=== PATIENT | male | born 1980 | race American Indian/Alaskan Native ===

== ENCOUNTER 2019-08-12 21:30 | Emergency (ER) | payer SELFPAY ==
[2019-08-12 21:54] VITALS: BP 154/90
--- NOTE | 2019-08-12 22:44 | Emergency Department Report ---
Chief Complaint: Urogenital-Male Stated Complaint: STD Time Seen by Provider: 08/12/19 22:39 - HPI History of Present Illness: 38 y.o male comes in for STD. No abd pain no fever no penile discharge. Patient reports that his girl has trich. - ROS Review of Systems: No abd pain no fever no penile discharge. - Exam Vital Signs: Vital Signs 08/12/19 21:46 Temperature 98.0 F Pulse Rate 77 Respiratory 18 Rate Blood Pressure 154/90 O2 Sat by Pulse 98 Oximetry Physical Exam: AxO time 3 NAD Ambulates without difficulties. MSE screening note: Focused history and physical exam performed. Due to findings the following was ordered: ED Disposition for MSE Condition: Stable
[2019-08-13] MEDS ORDERED: metroNIDAZOLE 500 MG TAB PO ONE
[2019-08-13 00:25] LABS: Bilirubin,Urine NEG (Negative); Blood,Urine NEG (Negative); Color,Urine Yellow (Yellow); Hyaline Casts,Urine 1 /LPF; Mucus,Urine 3+ /HPF
--- NOTE | 2019-08-13 00:30 | Emergency Department Report ---
HPI - General Chief Complaint: Urogenital-Male Time Seen by Provider: 08/12/19 22:39 - HPI HPI: Room 29 The patient is a 38-year-old male presenting with a chief complaint of STD exposure. The patient states his girlfriend told him she is diagnosed with Trichomonas and that he needs to be treated. Patient denies symptoms. Patient denies dysuria or penile discharge. Patient denies history of fever ED Past Medical Hx - Past Medical History Hx Hypertension: Yes - Surgical History Past Surgical History?: No - Family History Family history: no significant - Social History Smoking Status: Never Smoker Substance Use Type: None (denies illicit drug use), Alcohol (occasional) ED Review of Systems ROS: Stated complaint: STD Other details as noted in HPI Constitutional: denies: fever Eyes: denies: eye pain ENT: denies: throat pain Respiratory: no symptoms reported Cardiovascular: denies: chest pain Endocrine: no symptoms reported Gastrointestinal: denies: abdominal pain Genitourinary: denies: dysuria, discharge Neurological: denies: headache Physical Exam - Physical Exam Vital Signs: Vital Signs 08/12/19 21:46 Temperature 98.0 F Pulse Rate 77 Respiratory 18 Rate Blood Pressure 154/90 O2 Sat by Pulse 98 Oximetry Physical Exam: GENERAL: The patient is well-developed well-nourished male sitting in chair not appearing to be in acute distress. [] HEENT: Normocephalic. Atraumatic. Extraocular motions are intact. Patient has moist mucous membranes. NECK: Supple. CHEST/LUNGS: Clear to auscultation. There is no respiratory distress noted. HEART/CARDIOVASCULAR: Regular. There is no tachycardia. There is no gallop rub or murmur. ABDOMEN: Abdomen is soft, nontender. Patient has normal bowel sounds. There is an easily reducible small ventral hernia SKIN: There is no rash. There is no edema. There is no diaphoresis. NEURO: The patient is awake, alert, and oriented. The patient is cooperative. The patient has normal speech MUSCULOSKELETAL: There is no evidence of acute injury. ED Course Vital Signs 08/12/19 21:46 Temperature 98.0 F Pulse Rate 77 Respiratory 18 Rate Blood Pressure 154/90 O2 Sat by Pulse 98 Oximetry ED Medical Decision Making - Lab Data Laboratory Tests 08/12/19 Unknown Urine Color Yellow Urine Turbidity Clear Urine pH 5.0 Ur Specific [place] 1.027 Urine Protein 30 mg/dl Urine Glucose (UA) Neg Urine Ketones Neg Urine Blood Neg Urine Nitrite Neg Urine Bilirubin Neg Urine Urobilinogen 2.0 Ur Leukocyte Esterase Neg Urine WBC (Auto) 2.0 Urine RBC (Auto) 2.0 Hyaline Casts 1 Urine Mucus 3+ - Differential Diagnosis Trichomonas exposure Critical care attestation.: If time is entered above; I have spent that time in minutes in the direct care of this critically ill patient, excluding procedure time. ED Disposition Clinical Impression: Trichomonas exposure Disposition: DC- TO HOME OR SELFCARE Is pt being admited?: No Does the pt Need Aspirin: No Condition: Stable Instructions: Trichomoniasis (ED), Safe Sex (ED), Sexually Transmitted Diseases (ED) Referrals: PRIMARY CAREMD [Primary Care Provider] - 3-5 Days SAMANTHA VALENZUELA MD [Staff Physician] - 3-5 Days (Dr. Valenzuela is a surgeon. Please follow up with him for further evaluation of your hernia) Time of Disposition: 00:30
== END 2019-08-13 00:40 | disposition home or self-care (01) ==
LOC: ED 21:30
DX: A59.9 Trichomoniasis, unspecified (principal); I10 Essential (primary) hypertension
CPT/HCPCS: 81001; 99283